=== PATIENT | male | born 1950 | race African-American/Black ===

== ENCOUNTER 2019-09-03 03:24 | Inpatient (IN) | payer MEDICARE, BC ==
[~2019-09-03] VITALS: Ht 175.3 cm; Wt 128.8 kg
[2019-09-03 05:05] LABS: BASOPHILS % 0.8 % (0.0-2.0); EOSINOPHILS % 3.8 % (0.0-5.0); HEMATOCRIT. 36.1 % (42.0-52.0); HEMOGLOBIN. 12.1 g/dL (14.0-18.0); LYMPHOCYTES % 15.6 % (20.0-50.0); MEAN CORPUSCULAR HEMOGLOBIN 33.5 pg (28.0-32.0); MEAN CORPUSCULAR VOLUME 100.1 fL (80.0-94.0); MONOCYTES % 6.9 % (2.0-8.0); NEUTROPHILS % 72.9 % (40.0-76.0); PLATELET 209 x1000/uL (130-400); RED BLOOD CELL COUNT 3.61 mill/uL (4.7-6.1); RED CELL DISTRIBUTION WIDTH 14.2 % (11.6-14.6)
[2019-09-03 05:11] LABS: CHLORIDE 95 mEq/L (98-107)
[2019-09-03] MEDS ORDERED: ONDANSETRON HCL 4MG/2ML INJ IV PRN (14:30)
[2019-09-03] MEDS ORDERED: CLONIDINE 0.1MG TABLET PO PRN (14:30)
[2019-09-03] MEDS ORDERED: DOCUSATE SODIUM 100MG CAPSULE PO PRN (14:30)
[2019-09-03] MEDS ORDERED: HYDROCODONE/ACETAMINOPHEN 5/325MG TABLET PO PRN (14:30)
[2019-09-03] MEDS ORDERED: IPRATROPIUM/ALBUTEROL 0.5-3(2.5)MG/3ML NEB HHN PRN (14:30)
[2019-09-03] MEDS ORDERED: LORAZEPAM 0.5MG TABLET PO PRN (14:30)
[2019-09-03] MEDS ORDERED: ACETAMINOPHEN 325MG TABLET PO PRN ×2 (14:30)
[2019-09-03 15:31] LABS: CREATINE KINASE MB FRACTION 1.8 ng/mL (0.5-3.6)
[2019-09-03] MEDS: HYDRALAZINE 20MG/ML VIAL IV PRN ×2 (17:39→21:50)
[2019-09-03 20:00] VITALS: BP 195/96
[2019-09-03] MEDS ORDERED: AMLODIPINE 5MG TABLET PO SCH (21:00)
[2019-09-03 22:41] VITALS: BP 196/96
[2019-09-03] MEDS ORDERED: ALLO300T2 PO (23:14)
[2019-09-03] MEDS ORDERED: AMLO10TA80 PO (23:14)
[2019-09-03] MEDS ORDERED: CLON0.1T PO (23:14)
[2019-09-04] VITALS: BP 143/72
[2019-09-04 04:00] VITALS: BP 155/78
[2019-09-04 08:00] VITALS: BP 126/60
[2019-09-04] MEDS ORDERED: LOSARTAN POTASSIUM 25 MG TABLET PO SCH (09:30)
[2019-09-04] MEDS ORDERED: CARVEDILOL 3.125 MG TABLET PO SCH (21:00)
== END 2019-09-04 09:38 | disposition left against medical advice (07) | DRG 640 ==
LOC: ER 03:34 → EDBEDREQTM 05:58 → EDBEDREQ 05:58 → ENRESERV 17:19 → 7WST 18:34
PROVIDERS: ADMIT Internal Medicine; ATTEND Internal Medicine
PROC: 5A1D70Z Performance of Urinary Filtration, Intermittent, Less than 6 Hours Per Day (ICD-10-PCS; principal; 2019-09-03)
PROC: 5A1D70Z Performance of Urinary Filtration, Intermittent, Less than 6 Hours Per Day (ICD-10-PCS; 2019-09-04)
DX: E87.70 Fluid overload, unspecified (principal); N18.6 End stage renal disease; I13.2 Hypertensive heart and chronic kidney disease with heart failure and with stage 5 chronic kidney disease, or end stage renal disease; E87.5 Hyperkalemia; E11.65 Type 2 diabetes mellitus with hyperglycemia; R74.8 Abnormal levels of other serum enzymes; I44.0 Atrioventricular block, first degree; R74.0 Nonspecific elevation of levels of transaminase and lactic acid dehydrogenase [LDH]; I50.9 Heart failure, unspecified; Z53.21 Procedure and treatment not carried out due to patient leaving prior to being seen by health care provider; E11.22 Type 2 diabetes mellitus with diabetic chronic kidney disease; D50.9 Iron deficiency anemia, unspecified; Z53.29 Procedure and treatment not carried out because of patient's decision for other reasons; Z88.8 Allergy status to other drugs, medicaments and biological substances; Z79.899 Other long term (current) drug therapy; Z79.84 Long term (current) use of oral hypoglycemic drugs; Z82.49 Family history of ischemic heart disease and other diseases of the circulatory system; Z76.82 Awaiting organ transplant status; Z99.2 Dependence on renal dialysis; Z98.49 Cataract extraction status, unspecified eye; Z03.818 Encounter for observation for suspected exposure to other biological agents ruled out
CPT/HCPCS: 36415; 71045; 80053; 80061; 82550; 82553; 82728; 82962; 83036; 83540; 83550; 83880; 84145; 84484; 85025; 87635; 93005; 99285; J0360